=== PATIENT | male | born 2000 | race Hispanic/Latino ===

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

== ENCOUNTER 2019-01-23 09:33 | Emergency (ER) | payer BC ==
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
[2019-01-23 11:12] VITALS: BP 115/72; TEMP 97.5; O2SAT 97
== END 2019-01-23 11:12 | disposition home or self-care (01) ==
LOC: ER 09:33
DX: S09.90XA Unspecified injury of head, initial encounter (principal); M54.2 Cervicalgia; W18.30XA Fall on same level, unspecified, initial encounter; Y92.9 Unspecified place or not applicable

== ENCOUNTER → 2020-08-31 | Outpatient (CLI) | payer BC | LOC: YCFC.O 16:31 | PROVIDERS: ATTEND Nurse Practitioner Family | DX: Z20.828 Contact with and (suspected) exposure to other viral communicable diseases (principal) ==